=== PATIENT | female | born 1970 | race Two or more races ===

== ENCOUNTER 2020-02-01 07:32 | Emergency (ER) | payer MEDICAID ==
[~2020-02-01] VITALS: Ht 157.5 cm; Wt 68.0 kg
[2020-02-01 07:52] VITALS: Ht 157.5 cm; Wt 68.0 kg
[2020-02-01 08:39] LABS: BASOPHIL % 0.5 % (0-2); PLATELET COUNT 371 x10^3mcL (130-400); RED CELL DISTRIBUTION WIDTH 12.7 % (11.5-14.5)
[2020-02-01 08:42] LABS: CALCIUM 9.4 mg/dL (8.5-10.1); CARBON DIOXIDE 21.6 mmol/L (21-32); CHLORIDE SERUM 104 mmol/L (98-107); CREATININE SERUM 0.7 mg/dL (0.6-1.0); GFR1 > 60 mL/min; GLUCOSE SERUM 117 mg/dL (74-106); POTASSIUM SERUM 3.5 mmol/L (3.5-5.1); SODIUM SERUM 139 mmol/L (136-145)
[2020-02-01 08:49] LABS: ALBUMIN 3.5 g/dL (3.4-5.0); ALKALINE PHOSPHATASE 95 U/L (46-116); ALT/SGPT 82 U/L (14-59); AST/SGOT 110 U/L (15-37); BILIRUBIN TOTAL 0.6 mg/dL (0.20-1.00); HDL CHOLESTEROL 38 mg/dL (40-60); LIPASE 125 IU/L (73-393); TOTAL PROTEIN, SERUM 7.6 g/dL (6.4-8.2)
[2020-02-01 08:56] LABS: CHOLESTEROL 214 mg/dL (<200); CHOLESTEROL/HDL RATIO 5.6; TRIGLYCERIDES 345 mg/dL (<150)
[2020-02-01 14:48] VITALS: BP 116/76
== END 2020-02-01 14:48 | disposition home or self-care (01) ==
LOC: ED 07:32
PROVIDERS: Specialist
DX: K80.50 Calculus of bile duct without cholangitis or cholecystitis without obstruction (principal); I10 Essential (primary) hypertension
CPT/HCPCS: 36415; Q0092